=== PATIENT | female | born 1995 | race Caucasian/White ===

== ENCOUNTER → 2018-01-09 14:37 | Outpatient (REF) | payer MEDICAID, SELFPAY | LOC: LAB 14:37 | PROVIDERS: Visit Provider Nurse Practitioner Obstetrics & Gynecology | DX: Z34.90 Encounter for supervision of normal pregnancy, unspecified, unspecified trimester (principal) | CPT/HCPCS: 86403 ==

== ENCOUNTER 2018-01-16 12:08 | Outpatient (CLI) | payer MEDICAID, SELFPAY ==
[2018-01-16 12:31] VITALS: BP 134/92; PULSE 76; RESP 18; TEMP 36.8; O2SAT 99; BMI 46.1
--- NOTE | 2018-01-16 13:01 | P.PN_ITS ---
Internal Medicine - PN: Subj *Date: 01/16/18 *Time: 12:59 Interval history: She is a 23-year-old 3 para 2 who was seen in my office today and her blood pressure is 140/110. She has 3+ proteinuria. She has brisk reflexes. She denies headache, scotomata or epigastric pain. She has had a previous history of increased blood pressure in her previous pregnancies. Her nonstress test is reactive she is not having any contractions. Her cervix is 2-3 cm 50% -2. We will order [facility] blood work. Her blood pressure here is 130/90. Given the fact that her blood pressure settled we will consider sending her home for a 24- hour urine test. We will see her back in my office in a couple of days. If her blood pressure continues to be elevated will consider delivery. Exam Vital signs and Labs for Last 24 Hours: Temp Pulse Resp BP Pulse Ox 98.3 F 76 18 134/92 99 01/16/18 12:31 01/16/18 12:31 01/16/18 12:31 01/16/18 12:31 01/16/18 12:31 I & O for Last 24 hours: Intake & Output 01/14/18 01/15/18 01/16/18 01/17/18 11:59 11:59 11:59 11:59 Weight 236 lb 8 oz - Constitutional no acute distress Assessment and Plan (1) PIH ( induced hypertension), antepartum Current visit: Yes Status: Acute Category: Medical Code(s): O13.9 - Gestational [-induced] hypertension without significant proteinuria, unspecified trimester (2) Prior complicated by PIH, antepartum Current visit: Yes Status: Acute Category: Medical Code(s): O09.899 - Supervision of other high risk pregnancies, unspecified trimester - Assessment and plan all Dx Assessment and Plan for all problems:: We will observe her for the next hour or 2. We will make arrangements for her to have a 24-hour urine. She has some routine blood work ordered. She is however completely asymptomatic. We will see with a 24-hour urine shows and if she continues to have proteinuria we will consider delivery.
[2018-01-16 13:05] LABS: Microscopic, Urine URINE MICROSCOPIC (MICROSCOPIC)
[2018-01-16 13:23] LABS: Hematocrit 32.2 % (37.0-47.0); Hemoglobin 10.8 g/dL (12.2-16.2); Mean Corpuscular HGB Conc 33.5 g/dL (31.8-35.4); Mean Corpuscular Hemoglobin 27.3 pg (27.0-31.2); Mean Corpuscular Volume 81.5 fl (81-99); Mean Platelet Volume 8.3 fl (7.4-10.4); Monocytes % 3.8 % (1.7-9.3); Platelet Count 248 K/mm3 (142-424); Red Blood Count 3.95 M/mm3 (4.20-5.40); Red Cell Distribution Width 15.5 % (11.5-17.5); White Blood Count 7.2 K/mm3 (4.8-10.8)
[2018-01-16 13:23] LABS: Appearance,Urine SL CLOUDY (Clear); Bilirubin,Urine Negative (Negative); Blood, Urine 2+ (Negative); Color,Urine YELLOW (Yellow); Glucose,Urine (UA) Negative (Negative); Ketones,Urine TRACE (Negative); Leukocyte Esterase,Urine Negative (Negative); Nitrate,Urine Negative (Negative); Protein,Urine 3+ (Negative); Specific Gravity, Urine >= 1.030 (1.005-1.030); Urobilinogen,Urine 0.2 EU/dl (0.2)
[2018-01-16 13:31] LABS: Basophils % 0.4 % (0.1-2.0); Eosinophils # 0.1 K/mm3 (0.0-0.4); Eosinophils % 1.1 % (0.1-12.0); Monocytes # 0.3 K/mm3 (0.1-1.0); Neutrophils # 4.9 K/mm3 (1.8-7.8)
[2018-01-16 13:32] LABS: Lymphocytes # 1.9 K/mm3 (0.7-4.5); Lymphocytes % 26.6 K/mm3 (10-50)
[2018-01-16 13:46] LABS: Bacteria,Urine 4+ /lpf
[2018-01-16 13:46] LABS: Alanine Aminotransferase 21 U/L (12-78); Anion Gap 11.2 mEq/L (5-15); Aspartate Amino Transferase 19 U/L (15-37); Blood Urea Nitrogen 11 mg/dL (7-18); Carbon Dioxide 25 mmol/L (21.0-32.0); Chloride 106 mmol/L (98-107); Creatinine Clearance Estimated 92 mL/min (0-300); Creatinine,Serum 0.68 mg/dL (0.55-1.02); Estimated Glomerular Filt Rate 107 ml/min (>60); GFR (African American) 130 ML/MIN (>60); Glucose 111 mg/dL (74-106); Potassium 4.2 mmoL/L (3.5-5.1); Sodium 138 mmol/L (136-145); Uric Acid 3.7 mg/dL (2.6-7.2)
[2018-01-16 14:31] LABS: Activated Partial Thrombo Time 23.3 seconds (23.6-34.0); D-Dimer 863 (0-400); Fibrinogen 359 mg/dL (204-500); INR 0.83 (0.9-1.1)
== END 2018-01-16 14:30 | disposition home or self-care (01) ==
LOC: OBOUT 12:10 → OB 12:11
PROVIDERS: PCP Nurse Practitioner Obstetrics & Gynecology; Visit Provider Nurse Practitioner Obstetrics & Gynecology
DX: O13.9 Gestational [pregnancy-induced] hypertension without significant proteinuria, unspecified trimester (principal); O09.899 Supervision of other high risk pregnancies, unspecified trimester; Z3A.38 38 weeks gestation of pregnancy
CPT/HCPCS: 59025; 80048; 81001; 84450; 84460; 84550; 85025; 85378; 85384; 85610; 85730; 87086

== ENCOUNTER → 2018-01-19 14:46 | Outpatient (REF) | payer MEDICAID, SELFPAY ==
[2018-01-19 16:41] LABS: Total Protein 24 Hour,Urine 9204 mg/24 hr (40-90); Total Protein,Urine Random 736.3 mg/dL (0.0-11.9); Total Volume,Urine 1250 mL (600-1600)
== END ==
LOC: LAB 14:46
PROVIDERS: Visit Provider Nurse Practitioner Obstetrics & Gynecology
DX: Y99.9 Unspecified external cause status (principal)
CPT/HCPCS: 84155

== ENCOUNTER 2018-01-20 09:57 | Inpatient (IN) | payer MEDICAID, SELFPAY ==
[2018-01-20] VITALS (29 sets, daily range): BP systolic 118–149; BP diastolic 63–94; PULSE 72–83; RESP 16; TEMP 36.7–36.8; O2SAT 100; BMI 46.8
[2018-01-20 11:12] LABS: Basophils % 0.4 % (0.1-2.0); Eosinophils # 0.1 K/mm3 (0.0-0.4); Eosinophils % 1.7 % (0.1-12.0); Hematocrit 31.6 % (37.0-47.0); Hemoglobin 10.4 g/dL (12.2-16.2); Lymphocytes # 1.8 K/mm3 (0.7-4.5); Lymphocytes % 24.2 K/mm3 (10-50); Mean Corpuscular Hemoglobin 26.6 pg (27.0-31.2); Mean Corpuscular Volume 80.6 fl (81-99); Mean Platelet Volume 8.2 fl (7.4-10.4); Monocytes # 0.4 K/mm3 (0.1-1.0); Monocytes % 4.7 % (1.7-9.3); Neutrophils # 5.2 K/mm3 (1.8-7.8); Platelet Count 242 K/mm3 (142-424); Red Blood Count 3.92 M/mm3 (4.20-5.40); Red Cell Distribution Width 15.6 % (11.5-17.5); White Blood Count 7.6 K/mm3 (4.8-10.8)
[2018-01-20 11:28] LABS: Alanine Aminotransferase 22 U/L (12-78); Anion Gap 10.3 mEq/L (5-15); Blood Urea Nitrogen 14 mg/dL (7-18); Carbon Dioxide 25 mmol/L (21.0-32.0); Chloride 104 mmol/L (98-107); Creatinine Clearance Estimated 86 mL/min (0-300); Creatinine,Serum 0.73 mg/dL (0.55-1.02); Estimated Glomerular Filt Rate 99 ml/min (>60); GFR (African American) 120 ML/MIN (>60); Glucose 84 mg/dL (74-106); Sodium 135 mmol/L (136-145); Uric Acid 4.6 mg/dL (2.6-7.2)
[2018-01-20 11:29] LABS: Aspartate Amino Transferase 26 U/L (15-37); Potassium 4.3 mmoL/L (3.5-5.1)
[2018-01-20 11:35] LABS: D-Dimer 985 (0-400)
[2018-01-20 12:46] LABS: Activated Partial Thrombo Time 23.3 seconds (23.6-34.0); Fibrinogen 359 mg/dL (204-500); INR 0.85 (0.9-1.1); Prothrombin Time 9.2 seconds (9.4-11.8)
[2018-01-20 13:49] LABS: Appearance,Urine CLOUDY (Clear); Bilirubin,Urine Negative (Negative); Blood, Urine 1+ (Negative); Color,Urine YELLOW (Yellow); Glucose,Urine (UA) Negative (Negative); Ketones,Urine Negative (Negative); Leukocyte Esterase,Urine Negative (Negative); Microscopic, Urine URINE MICROSCOPIC (MICROSCOPIC); Nitrate,Urine Negative (Negative); Protein,Urine 3+ (Negative); Specific Gravity, Urine 1.025 (1.005-1.030); Urobilinogen,Urine 0.2 EU/dl (0.2)
[2018-01-20 14:12] LABS: Bacteria,Urine 1+ /lpf; Mucus,Urine Trace /lpf; RBC,Urine Occasional #/hpf (0-3)
--- NOTE | 2018-01-20 15:38 | P.HP_ITS ---
OB - H&P: HPI Antepartum - History of Present Illness Chief complaint: Increased blood pressure - History of Present Criteria for establishing EDC:: LMP confirmed by 1st trimester US Obstetrical complications: preeclampsia Medical complications: none [facility] History Medical History: Denies:: Cancer, Diabetes Mellitus Type 1, Diabetes Mellitus Type 2, MRSA Other Medical History: Reports: Sinus Problems Other Surgeries: Yes: No Previous Surgery Amputation: No Fractures: No - *Social History Educational Level: Completed High School Smoking Status: Never smoker Alcohol Intake: never Substance Use Type: denies use Occupational Status: unemployed Housing: house Household Members: significant other - Psychiatric History Expresses thoughts of harming self/others: None Suicide Plan Description: No Plan *Family Hx:: Diabetes, Asthma Para: 2 Review of Systems - Review of Systems Review of systems:: pertinent systems reviewed and negative unless documented below Meds Home Medications Medication Instructions Recorded Confirmed Type ferrous sulfate 325 mg (65 mg 325 mg PO DAILY tab 01/09/18 01/20/18 History iron) tablet 1 tab PO QHS 01/09/18 01/20/18 History vitamin,calcium,wiscgsyg-nata-plpmg acid tablet Allergies Allergy/AdvReac Type Severity Reaction Status Date / Time Penicillins Allergy Severe DIFF Verified 01/20/18 09:29 BREATHING OB - H&P: Exam - Physical Exam Vital signs: Temp Pulse Resp BP Pulse Ox 98.2 F 80 16 118/65 100 01/20/18 10:27 01/20/18 10:27 01/20/18 10:27 01/20/18 13:58 01/20/18 10:27 - Constitutional no acute distress - Routine Neurological Exam Present: normal reflexes OB - Results - Labs Labs: Short CBC 01/20/18 Range/Units 10:55 WBC 7.6 (4.8-10.8) K/mm3 Hgb 10.4 L (12.2-16.2) g/dL Hct 31.6 L (37.0-47.0) % Plt Count 242 (142-424) K/mm3 BMP 01/20/18 10:55 Sodium 135 L Potassium 4.3 Chloride 104 Carbon Dioxide 25 BUN 14 Creatinine 0.73 Glucose 84 Liver Function 01/20/18 Range/Units 10:55 AST 26 (15-37) U/L ALT 22 (12-78) U/L Urine 02/19/18 Range/Units 13:30 Urine Color Yellow (Yellow) Urine Appearance Cloudy (Clear) Urine pH 6.0 (5.0-8.5) Ur Specific [place] 1.025 (1.005-1.030) Urine Protein 3+ (Negative) Urine Glucose (UA) Negative (Negative) OB - A/P Antepartum (1) PIH ( induced hypertension) Current visit: Yes Status: Acute (2) Prior complicated by PIH, antepartum Current visit: Yes Status: Acute - Additional Plan Plan: induction (She is term with increased blood pressure and proteinuria. We will go ahead and start oxytocin in the morning.) Planning to breastfeed?: Yes
[2018-01-21] VITALS (8 sets, daily range): BP systolic 121–158; BP diastolic 66–95; PULSE 59–74; RESP 16; TEMP 36.6; O2SAT 100
--- NOTE | 2018-01-21 07:55 | HMH.LABNOT ---
Labor Note - Subjective: Date: 01/21/18 Time: 07:55 regular contraction - Objective: NST:: Reactive Contractions:: every 4-5 minutes Cervical Dilation:: 3 Effacement:: 75% Station: -2 Membranes: articially ruptured - Fetus: Monitoring?: Yes monitoring type:: Internal and External - Assessment: Labor progressing?: Yes Cephalopelvic disproportion?: No Patient Problems: All Active Problems PIH ( induced hypertension) (Acute) Prior complicated by PIH, antepartum (Acute) (Acute) (Acute) - Plan: Anesthesia for epidural?: No Continue to labor down?: Yes Plan for ?: No Continue to monitor?: Yes Start pushing?: No
--- NOTE | 2018-01-21 09:39 | P.PN_ITS ---
[facility] Anesthesia Checklist - Patient Identification Patient Identification: Arm Band - Structural Data Admitted From: Inpatient Planned Operative Procedure/s: labor epidural Consent for Planned Operative Procedure(s) Verified: Yes Verified Documents: History and Physical - NPO Status Verified Time NPO: 00:00 - Additional verifications Anesthesia Reactions: No - Airway Assessment C-Spine Mobility Assessed: Yes TMJ Mobility Assessed: Yes Dentition: Good Dentition - Neurological Assessment Level of Consciousness: Awake, Alert - Anesthesia Plan Anesthesia Risk discussed: Yes Anesthesia Plan: Verified ASA Class: II Anesthesia Type: Epidural [facility] Anesthesia HX I have reviewed the patient's past medical history: Yes Medical History: Denies:: Cancer, Diabetes Mellitus Type 1, Diabetes Mellitus Type 2, MRSA Other Medical History: Reports: Sinus Problems Other Surgeries: Yes: No Previous Surgery Amputation: No Fractures: No *Family Hx:: Diabetes, Asthma
--- NOTE | 2018-01-21 10:16 | HMH.DN ---
- Delivery Note Delivery Date:: 01/21/18 Delivery Time:: 10:04 Anesthesia Type: Epidural Was labor medically induced?: Yes Induction method: per pitocin protocol Gestational age (weeks): 39 Infant delivered prior to 39 weeks?: No Infant Gender: Male at 1 minute: 8 at 5 minutes: 9 AF:: Clear fluid LAC or MLE?: LAC Delivery Procedure:: She is a 23-year-old 3 para 2 who was 39+ weeks gestational age. She was office yesterday her blood pressure is in the 140/110 range. She had a 24-hour urine last week that showed almost 800 mg of protein in her 24-hour urine. As result of that we elected to deliver her. She was started on IV oxytocin and had her membranes ruptured. Under labor O she progressed to full vision and deliver continuously born about at 10:05 AM on the morning of 2017. On deliver the head it was noted that there was a tight nuchal cord and I elected to deliver the risks of the 's body atraumatically. The cord was then reduced. The nasopharynx and oropharynx were bulb suctioned. The baby cried spontaneously. We allowed the cord to continue to pulsate for approximately 5 seconds. Cord was then doubly clamped and cut. The infant was then placed on the mother's abdomen for further care. The nurses assigned Apgars of 8 at 1 minute and 9 at 5 minutes. We then obtained cord blood as well as cord pH. Using gentle traction on the cord and countertraction on the fundus I was able to easily deliver the placenta intact. He had a normal three-vessel cord. She had a small left labial tear that was repaired with interrupted 3-0 Vicryl Rapide suture. She has a positive blood, she is rubella immune and was group A streptococcus. She plans to breast-feed. Her carriage setter Dr. Liz. Estimated blood loss was approximately 400 cc. Laceration:: vaginal Placental Delivery Description: Spontaneous
--- NOTE | 2018-01-21 10:19 | P.PCN_ITS ---
- Delivery Note Delivery Date:: 01/21/18 Delivery Time:: 10:04 Anesthesia Type: Epidural Was labor medically induced?: Yes Induction method: per pitocin protocol Gestational age (weeks): 39 Infant delivered prior to 39 weeks?: No Infant Gender: Male at 1 minute: 8 at 5 minutes: 9 AF:: Clear fluid LAC or MLE?: LAC Delivery Procedure:: She is a 23-year-old 3 para 2 who was 39+ weeks gestational age. She was office yesterday her blood pressure is in the 140/110 range. She had a 24- hour urine last week that showed almost 800 mg of protein in her 24-hour urine. As result of that we elected to deliver her. She was started on IV oxytocin and had her membranes ruptured. Under labor O she progressed to full vision and deliver continuously born about at 10:05 AM on the morning of 2017. On deliver the head it was noted that there was a tight nuchal cord and I elected to deliver the risks of the infant's body atraumatically. The cord was then reduced. The nasopharynx and oropharynx were bulb suctioned. The baby cried spontaneously. We allowed the cord to continue to pulsate for approximately 5 seconds. Cord was then doubly clamped and cut. The infant was then placed on the mother's abdomen for further care. The nurses assigned Apgars of 8 at 1 minute and 9 at 5 minutes. We then obtained cord blood as well as cord pH. Using gentle traction on the cord and countertraction on the fundus I was able to easily deliver the placenta intact. He had a normal three-vessel cord. She had a small left labial tear that was repaired with interrupted 3-0 Vicryl Rapide suture. She has a positive blood, she is rubella immune and was group A streptococcus. She plans to breast-feed. Her emergency department nurse Dr. Liz. Estimated blood loss was approximately 400 cc. Laceration:: vaginal Placental Delivery Description: Spontaneous
[2018-01-22 07:07] LABS: Hematocrit 29.9 % (37.0-47.0); Hemoglobin 9.6 g/dL (12.2-16.2)
[2018-01-22 07:15] LABS: Cord Blood PH 7.23 (7.35-7.45)
--- NOTE | 2018-01-22 08:11 | P.PN_ITS ---
Internal Medicine - PN: Subj *Date: 01/22/18 *Time: 08:10 Interval history: She is doing well. She is eating and drinking and ambulating. She is breast- feeding. Her lochia is normal. Exam Vital signs and Labs for Last 24 Hours: Temp Pulse Resp BP Pulse Ox 97.8 F 67 16 135/78 100 01/21/18 07:05 01/21/18 07:05 01/21/18 07:05 01/21/18 07:05 01/21/18 07:05 Laboratory Results - last 24 hr 01/21/18 10:15: Cord ABG pH 7.23 L* 01/22/18 06:35: Hgb 9.6 L, Hct 29.9 L I & O for Last 24 hours: Intake & Output 01/19/18 01/20/18 01/21/18 01/22/18 11:59 11:59 11:59 11:59 Intake Total 318 / 318 2300 / 2300 Output Total 1100 / 1100 Balance -782 / -782 2300 / 2300 Weight 240 lb - Constitutional no acute distress Assessment and Plan (1) PIH ( induced hypertension) Current visit: Yes Status: Acute Category: Medical Code(s): O13.9 - Gestational [-induced] hypertension without significant proteinuria, unspecified trimester (2) Prior complicated by PIH, antepartum Current visit: Yes Status: Acute Category: Medical Code(s): O09.899 - Supervision of other high risk pregnancies, unspecified trimester - Assessment and plan all Dx Assessment and Plan for all problems:: She continues to do well. Her blood pressures are slightly elevated in the 140/ 90 range. She denies any headache or scotomata.
[2018-01-22 20:25] VITALS: BP 179/112; PULSE 85; RESP 18; TEMP 36.8; O2SAT 98
[2018-01-22 21:20] VITALS: BP 121/78; PULSE 80; RESP 18
--- NOTE | 2018-01-23 08:05 | HMH.DCSUM ---
General - General Admission date: 01/21/18 Objective Vital signs: Temp Pulse Resp BP Pulse Ox 98.3 F 80 18 121/78 98 01/22/18 20:25 01/22/18 21:20 01/22/18 21:20 01/22/18 21:20 01/22/18 20:25 DS: Diagnosis - Discharge Diagnosis (1) PIH ( induced hypertension) Status: Acute (2) Prior complicated by PIH, antepartum Status: Acute Discharge Plan - Patient Discharge Instructions Additional Instructions: NO HEAVY LIFTING OR DRIVING FOR 2 WEEKS OR WHILE TAKING PAIN MEDICATIONS. NOTHING IN VAGINA FOR [address] FOLLOW UP WITH DR GAITAN ON Patient Instructions: [facility] Post Discharge Instructions - Follow up Plan Home Medications: Home Medications Medication Instructions Recorded Confirmed Type ferrous sulfate 325 mg (65 mg 325 mg PO DAILY tab 01/09/18 01/20/18 History iron) tablet 1 tab PO HS 01/09/18 01/21/18 History vitamin,calcium,okzoixos-fphq-mbulx acid tablet Prescriptions/Medication Reconciliation: No Action ferrous sulfate 325 mg (65 mg iron) tablet 325 mg PO DAILY tab vitamin,calcium,gtnthqoe-jbvh-riizd acid tablet 1 tab PO HS
--- NOTE | 2018-01-23 08:14 | P.DS_ITS ---
General - General Admission date: 01/21/18 Objective Vital signs: Temp Pulse Resp BP Pulse Ox 98.3 F 80 18 121/78 98 01/22/18 20:25 01/22/18 21:20 01/22/18 21:20 01/22/18 21:20 01/22/18 20:25 DS: Diagnosis - Discharge Diagnosis (1) PIH ( induced hypertension) Status: Acute (2) Prior complicated by PIH, antepartum Status: Acute Discharge Plan - Patient Discharge Instructions Additional Instructions: NO HEAVY LIFTING OR DRIVING FOR 2 WEEKS OR WHILE TAKING PAIN MEDICATIONS. NOTHING IN VAGINA FOR [address]. FOLLOW UP WITH DR GAITAN ON Patient Instructions: [facility] Post Discharge Instructions - Follow up Plan Home Medications: Home Medications Medication Instructions Recorded Confirmed Type ferrous sulfate 325 mg (65 mg 325 mg PO DAILY tab 01/09/18 01/20/18 History iron) tablet 1 tab PO HS 01/09/18 01/21/18 History vitamin,calcium,ofbdinse-qbwl-buwtt acid tablet Prescriptions/Medication Reconciliation: No Action ferrous sulfate 325 mg (65 mg iron) tablet 325 mg PO DAILY tab vitamin,calcium,ylvtcmfl-hyue-qaqsc acid tablet 1 tab PO HS
--- NOTE | 2018-01-23 08:15 | HMH.DCSUM ---
General - General Admission date: 01/21/18 Discharge date: 01/23/18 HPI HPI: She is a 23-year-old 3 para 2 who was 39+ weeks gestational office and her blood pressure was increased. Is elected to deliver her. Objective Vital signs: Temp Pulse Resp BP Pulse Ox 98.3 F 80 18 121/78 98 01/22/18 20:25 01/22/18 21:20 01/22/18 21:20 01/22/18 21:20 01/22/18 20:25 no acute distress Hospital Course Hospital Course: She was started on IV oxytocin and had her membranes ruptured. Under labor epidural she progressed to full dilation. She delivered spontaneously a liveborn male child at 10:04 AM on the morning of January 21, 2018. The baby weighed 6 lbs. 3 oz. and was 18 inches long. He had Apgars of 8 at 1 minute and 9 at 5 minutes. She has done well and has remained afebrile throughout her hospitalization. She is eating and drinking and ambulating. She is breast-feeding. She has a positive blood, she is rubella immune and was group A streptococcus negative. Her director of strategy & mobile is Dr. Liz. She is discharged home to follow-up with me in approximately 2 weeks time. She will take inrl-cel-cksavkk analgesics. She will take her vitamins and iron. She did have increased blood pressure and on her first day she was started on oral labetalol 200 mg twice daily. She will take this when she goes home. DS: Diagnosis - Discharge Diagnosis (1) PIH ( induced hypertension) Status: Acute (2) Prior complicated by PIH, antepartum Status: Acute Discharge Plan - Patient Discharge Instructions ACTIVITY: Continue current activity, No heavy lifting DIET: continue same diet Additional Instructions: NO HEAVY LIFTING OR DRIVING FOR 2 WEEKS OR WHILE TAKING PAIN MEDICATIONS. NOTHING IN VAGINA FOR [address] FOLLOW UP WITH DR GAITAN ON Patient Instructions: [facility] Post Discharge Instructions - Follow up Plan Disposition: Home, Self-Half-Way Medications: Home Medications Medication Instructions Recorded Confirmed Type ferrous sulfate 325 mg (65 mg 325 mg PO DAILY tab 01/09/18 01/20/18 History iron) tablet 1 tab PO HS 01/09/18 01/21/18 History vitamin,calcium,argegneu-jtap-qodxc acid tablet Prescriptions/Medication Reconciliation: Continue ferrous sulfate 325 mg (65 mg iron) tablet 325 mg PO DAILY tab vitamin,calcium,mpauwtrc-zoql-ypqzz acid tablet 1 tab PO HS
--- NOTE | 2018-01-23 08:18 | P.DS_ITS ---
General - General Admission date: 01/21/18 Discharge date: 01/23/18 HPI HPI: She is a 23-year-old 3 para 2 who was 39+ weeks gestational office and her blood pressure was increased. Is elected to deliver her. Objective Vital signs: Temp Pulse Resp BP Pulse Ox 98.3 F 80 18 121/78 98 01/22/18 20:25 01/22/18 21:20 01/22/18 21:20 01/22/18 21:20 01/22/18 20:25 no acute distress Hospital Course Hospital Course: She was started on IV oxytocin and had her membranes ruptured. Under labor epidural she progressed to full dilation. She delivered spontaneously a liveborn male child at 10:04 AM on the morning of January 21, 2018. The baby weighed 6 lbs. 3 oz. and was 18 inches long. He had Apgars of 8 at 1 minute and 9 at 5 minutes. She has done well and has remained afebrile throughout her hospitalization. She is eating and drinking and ambulating. She is breast- feeding. She has a positive blood, she is rubella immune and was group A streptococcus negative. Her director of cardiac cath lab is Dr. Liz. She is discharged home to follow-up with me in approximately 2 weeks time. She will take ensh-ncx-xtftxid analgesics. She will take her vitamins and iron. She did have increased blood pressure and on her first day she was started on oral labetalol 200 mg twice daily. She will take this when she goes home. DS: Diagnosis - Discharge Diagnosis (1) PIH ( induced hypertension) Status: Acute (2) Prior complicated by PIH, antepartum Status: Acute Discharge Plan - Patient Discharge Instructions ACTIVITY: Continue current activity, No heavy lifting DIET: continue same diet Additional Instructions: NO HEAVY LIFTING OR DRIVING FOR 2 WEEKS OR WHILE TAKING PAIN MEDICATIONS. NOTHING IN VAGINA FOR [address]. FOLLOW UP WITH DR GAITAN ON Patient Instructions: [facility] Post Discharge Instructions - Follow up Plan Disposition: Home, Self-[facility] Medications: Home Medications Medication Instructions Recorded Confirmed Type ferrous sulfate 325 mg (65 mg 325 mg PO DAILY tab 01/09/18 01/20/18 History iron) tablet 1 tab PO HS 01/09/18 01/21/18 History vitamin,calcium,hhqvkupg-yjiq-vvryh acid tablet Prescriptions/Medication Reconciliation: Continue ferrous sulfate 325 mg (65 mg iron) tablet 325 mg PO DAILY tab vitamin,calcium,pusqwuzm-ypvm-qvxar acid tablet 1 tab PO HS
[2018-01-23 12:10] LABS: Basophils % 0.4 % (0.1-2.0); Eosinophils # 0.1 K/mm3 (0.0-0.4); Eosinophils % 1.2 % (0.1-12.0); Hematocrit 29.7 % (37.0-47.0); Hemoglobin 9.7 g/dL (12.2-16.2); Lymphocytes # 1.8 K/mm3 (0.7-4.5); Lymphocytes % 21.4 K/mm3 (10-50); Mean Corpuscular HGB Conc 32.8 g/dL (31.8-35.4); Mean Corpuscular Volume 82.2 fl (81-99); Mean Platelet Volume 8.1 fl (7.4-10.4); Monocytes # 0.3 K/mm3 (0.1-1.0); Monocytes % 3.7 % (1.7-9.3); Neutrophils # 6.2 K/mm3 (1.8-7.8); Neutrophils % 73.4 % (37.0-80.0); Platelet Count 236 K/mm3 (142-424); Red Blood Count 3.61 M/mm3 (4.20-5.40); Red Cell Distribution Width 15.9 % (11.5-17.5); White Blood Count 8.4 K/mm3 (4.8-10.8)
[2018-01-23 12:23] LABS: Alanine Aminotransferase 25 U/L (12-78); Anion Gap 9.1 mEq/L (5-15); Aspartate Amino Transferase 21 U/L (15-37); Blood Urea Nitrogen 8 mg/dL (7-18); Carbon Dioxide 30 mmol/L (21.0-32.0); Chloride 105 mmol/L (98-107); Creatinine Clearance Estimated 89 mL/min (0-300); Creatinine,Serum 0.71 mg/dL (0.55-1.02); Estimated Glomerular Filt Rate 102 ml/min (>60); GFR (African American) 123 ML/MIN (>60); Glucose 88 mg/dL (74-106); Potassium 4.1 mmoL/L (3.5-5.1); Sodium 140 mmol/L (136-145); Uric Acid 4.7 mg/dL (2.6-7.2)
[2018-01-23 13:07] LABS: Microscopic, Urine URINE MICROSCOPIC (MICROSCOPIC); Protein,Urine 2+ (Negative)
[2018-01-23 13:15] LABS: D-Dimer 1250 (0-400)
[2018-01-23 14:13] LABS: Activated Partial Thrombo Time 21.9 seconds (23.6-34.0); Fibrinogen 461 mg/dL (204-500); INR 0.85 (0.9-1.1); Prothrombin Time 9.2 seconds (9.4-11.8)
== END 2018-01-23 14:10 | disposition home or self-care (01) | DRG 775 ==
PROVIDERS: Admitting Provider Nurse Practitioner Obstetrics & Gynecology; Visit Provider Nurse Practitioner Obstetrics & Gynecology
DX: O13.4 Gestational [pregnancy-induced] hypertension without significant proteinuria, complicating childbirth (principal); O69.81X0 Labor and delivery complicated by cord around neck, without compression, not applicable or unspecified; Z37.0 Single live birth; Z3A.39 39 weeks gestation of pregnancy; O70.0 First degree perineal laceration during delivery
CPT/HCPCS: 59409; 59025; 80048; 81001; 82800; 84155; 84450; 84460; 84550; 85014; 85018; 85025; 85378; 85384; 85610; 85730; 86850; C1758

== ENCOUNTER 2022-08-10 20:40 | Emergency (ER) | payer MEDICAID, SELFPAY ==
[2022-08-10 21:05] VITALS: BP 134/92; PULSE 97; RESP 16; TEMP 36.8; O2SAT 98; BMI 38.7
[2022-08-10 21:12] LABS: Coronavirus 19, PCR Not Detected (NotDetected); Influenza A, PCR Not Detected (NotDetected); Influenza B, PCR Not Detected (NotDetected); Microscopic, Urine URINE MICROSCOPIC (MICROSCOPIC)
[2022-08-10 21:14] LABS: Appearance,Urine CLEAR (Clear); Bilirubin,Urine Negative (Negative); Blood, Urine Negative (Negative); Color,Urine YELLOW (Yellow); Glucose,Urine (UA) Negative (Negative); Ketones,Urine Negative (Negative); Leukocyte Esterase,Urine 3+ (Negative); Nitrate,Urine Negative (Negative); Protein,Urine Negative (Negative); Urobilinogen,Urine 0.2 EU/dl (0.2)
[2022-08-10 21:19] LABS: Urine Pregnancy, HCG Qual. Negative (Negative)
[2022-08-10 21:25] LABS: Bacteria,Urine 2+ /lpf
--- NOTE | 2022-08-10 22:00 | CT_ITS ---
PROCEDURE INFORMATION: Exam: CT Abdomen And Pelvis With Contrast Exam date and time: 08/10/2022 10:18 PM Age: 27 years old Clinical indication: Abdominal pain; Generalized; Prior surgery; Surgery date: 6+ months; Surgery type: Tubal ligation 2018; Additional info: N/v, low abd pain TECHNIQUE: Imaging protocol: Computed tomography of the abdomen and pelvis with contrast. Radiation optimization: All CT scans at this facility use at least one of these dose optimization techniques: automated exposure control; mA and/or kV adjustment per patient size (includes targeted exams where dose is matched to clinical indication); or iterative reconstruction. Contrast material: ISOVUE; Contrast volume: 75 ml; Contrast route: IV; COMPARISON: TVP US TRANSVAGINAL PREG 09/11/2017 1:34 PM FINDINGS: Lungs: Visualized lung bases are clear. Heart: Heart size normal. Mediastinal space: The visualized distal esophagus is largely contracted without gross abnormality. Liver: Normal contour. There are few very small 3-4 mm low-density nonenhancing probable cysts in the liver which do not require further assessment. No intrahepatic biliary ductal dilatation. Gallbladder and bile ducts: Normal. No calcified stones. No ductal dilation. Pancreas: Normal. No inflammatory changes or ductal dilation. Spleen: Normal. No splenomegaly. Adrenal glands: Normal. No adrenal mass. Kidneys and ureters: No acute abnormalities. No hydronephrosis or hydroureter. No urinary tract stones are identified. Stomach and bowel: The stomach is largely contracted without gross abnormality. The small bowel is nondilated with no gross abnormality. Question mild colonic wall thickening in the ascending colon suspicious for mild colitis. No evidence of perforation or abscess. Appendix: The appendix is normal in caliber and demonstrates no evidence of appendicitis. Intraperitoneal space: No free fluid or air. Vasculature: No acute process. No abdominal aortic aneurysm. Lymph nodes: No adenopathy. Urinary bladder: Unremarkable as visualized. Reproductive: Unremarkable as visualized. Bones/joints: No acute osseous abnormalities. Soft tissues: Unremarkable. IMPRESSION: 1. Questionable mild colonic wall thickening in the ascending colon suspicious for mild colitis. No evidence of perforation or abscess. 2. Additional nonemergent findings detailed above.
--- NOTE | 2022-08-10 22:03 | HMH.EDABDPAI ---
Discharge Plan Disposition Patient Disposition: Home, Self-Care Prescriptions Prescriptions: New levofloxacin 500 mg tablet 500 mg PO DAILY Qty: 7 0RF Referrals Follow up/Referrals: Sadi Dunham [Primary Care Provider] - See instructions Clinical Impressions Clinical Impression: UTI (urinary tract infection) Instructions Patient Instructions: DI for Urinary Tract Infection (UTI) Discharge ED Provider: Rg Cruz Abdominal Pain HPI General Chief Complaint: Abdominal Pain Stated Complaint: Cramping,vomiting Time Seen by Provider: 08/10/22 22:03 Mode of Arrival: Family Vehicle Source of Information: Patient and Medical Record Limitations: No Limitations Description of Symptoms (Recalled from ER Triage Doc. by RN): Pt c/o bilat pelvic cramping & pain, n/v, 1 positive test, and discharge from nipples. She states she had a tubal ligation in 2017, but she has not had a period sincy June 22. States that 2 days ago her R nipple had a white discharge and Left nipple had a darker almost ylw appearance. Denies any fever, chills, or diarrhea. Pt said she took 3 tests and 1 was positive while 2 were negative. She does note tenderness wit palpation to bilat breasts but has not felt any nodules, redness, or open skin lesions. History of Present Illness HPI narrative: has concern for possible preg despite btl- has lower pelvic pain but no d/c but has bilat breast d/c MD complaint: other (suprapubic ) Onset (ago): day(s) Location: suprapubic Severity: moderate Associated symptoms: other (breast d/c) Related Data Previous Rx's Medication Instructions Recorded levofloxacin 500 mg tablet 500 mg PO DAILY #7 tabs 08/10/22 Allergies Allergy/AdvReac Type Severity Reaction Status Date / Time Penicillins Allergy Severe DIFF Verified 04/26/22 11:59 BREATHING PFSH PFSH Social History Smoking Status: Never smoker second hand exposure: No alcohol intake: never substance use type: denies use current occupational status: unemployed Travel in the last 8 weeks: None household members: significant other housing: house caffeine: No ROS Obtained: Yes All systems reviewed & no additional complaints except as documented Physical Exam General General appearance: alert and obese Head Head exam: normocephalic Eye Eye exam: Present PERRL and EOMI ENT ENT exam: Present mucous membranes moist Neck Neck exam: Present trachea midline Respiratory Respiratory exam: Absent respiratory distress Cardiovascular Cardiovascular exam: Present regular rate; Absent systolic murmur Abdominal Exam Abdominal exam: Present soft; Absent rebound Extremities Exam Extremities exam: Present full ROM Neurological Exam Neurological exam: Present alert, oriented X3 and CN II-XII intact Psychiatric Psychiatric exam: Present normal affect Skin Skin exam: Present intact Medical Decision Making Medical Records Medical records reviewed: Yes I reviewed the patient's medical records. Vitor Inquiry Pt receiving controlled substance: No Vital Signs: 08/10/22 21:05 Temperature 98.2 F Temperature Source Oral Pulse Rate [Right] 97 H Respiratory Rate 16 Blood Pressure [Right Arm] 134/92 H Blood Pressure Mean [Right Arm] 106 Blood Pressure Source [Right Arm] Automatic Cuff 02 Sat by Pulse Oximetry 98 Oxygen Delivery Method Room Air Lab Data Lab results reviewed: Yes I reviewed the patient's lab results. Lab Results 08/10/22 21:04: Urine Color Yellow, Urine Appearance Clear, Urine pH 6.0, Ur Specific [place] 1.010, Urine Protein Negative, Urine Glucose (UA) Negative, Urine Ketones Negative, Urine Blood Negative, Urine Nitrate Negative, Urine Bilirubin Negative, Urine Urobilinogen 0.2, Ur Leukocyte Esterase 3+ A, Urine RBC None, Urine WBC 5-10, Ur Squamous Epith Cells 3-5, Urine Bacteria 2+ 08/10/22 21:04: Urine HCG, Qual Negative 08/10/22 21:04: SARS-CoV-2 (PCR) Not detected, Influenza
[2022-08-10 22:19] LABS: Basophils # 0.1 K/mm3 (0-0.2); Basophils % 0.8 % (0.1-2.0); Eosinophils # 0.1 K/mm3 (0.0-0.4); Eosinophils % 1.1 % (0.1-12.0); Hematocrit 39.5 % (37.0-47.0); Hemoglobin 13.2 g/dL (12.2-16.2); Lymphocytes # 1.9 K/mm3 (0.7-4.5); Lymphocytes % 24.5 % (10-50); Mean Corpuscular HGB Conc 33.4 g/dL (31.8-35.4); Mean Corpuscular Hemoglobin 29.3 pg (27.0-31.2); Mean Corpuscular Volume 87.6 fl (81-99); Mean Platelet Volume 7.5 fl (7.4-10.4); Monocytes # 0.4 K/mm3 (0.1-1.0); Monocytes % 4.5 % (1.7-9.3); Neutrophils # 5.3 K/mm3 (1.8-7.8); Neutrophils % 69.1 % (37.0-80.0); Platelet Count 325 K/mm3 (142-424); Red Blood Count 4.51 M/mm3 (4.20-5.40); Red Cell Distribution Width 13.7 % (11.5-17.5); White Blood Count 7.7 K/mm3 (4.8-10.8)
[2022-08-10 22:24] LABS: Amylase 59 U/L (30-110)
[2022-08-10 22:25] LABS: Alanine Aminotransferase 19 U/L (12-78); Albumin Level 4.3 g/dl (3.5-5.0); Albumin/Globulin Ratio 1.3 (1.1-1.8); Alkaline Phosphatase 69 U/L (38-126); Anion Gap 10.8 mEq/L (5-15); Aspartate Amino Transferase 28 U/L (14-36); Blood Urea Nitrogen 9 mg/dl (7-17); Calcium 8.8 mg/dl (8.4-10.2); Carbon Dioxide 27 mmol/L (22.0-30.0); Chloride 106 mmol/L (98-107); Creatinine Clearance Estimated 155 mL/min (50-200); Estimated Glomerular Filt Rate 86 ml/min (>60); GFR (African American) 104 ML/MIN (>60); Globulin 3.3 g/dL (1.3-3.2); Glucose 118 mg/dl (74-100); Lipase 63 U/L (23-300); Potassium 3.8 mmoL/L (3.5-5.1); Sodium 140 mmol/L (136-145); Total Protein,Serum 7.6 g/dl (6.3-8.2)
[2022-08-10 22:29] LABS: C-Reactive Protein 2.1 mg/L (0-4)
[2022-08-10 22:34] LABS: Bilirubin,Total < 0.1 mg/dl (0.2-1.3)
[2022-08-10 22:43] LABS: Erythrocyte Sedimentation Rate 39 mm/hr (0-20)
[2022-08-10 23:33] VITALS: BP 124/80; PULSE 81; RESP 18; TEMP 36.8; O2SAT 99
[2022-08-10 23:37] LABS: Procalcitonin < 0.030 ng/mL (0.0-2.0)
[2022-08-12 08:47] LABS: Prolactin 11.3 ng/mL (4.8-23.3)
== END 2022-08-10 23:36 | disposition home or self-care (01) ==
PROVIDERS: Emergency Provider Emergency Medicine; PCP Family Medicine
DX: N39.0 Urinary tract infection, site not specified (principal); R11.2 Nausea with vomiting, unspecified; Z20.822 Contact with and (suspected) exposure to COVID-19; Z79.899 Other long term (current) drug therapy; Z88.0 Allergy status to penicillin
CPT/HCPCS: 74177; 80053; 81001; 81025; 82150; 83690; 84145; 84146; 85025; 85651; 86140; 87086; 96361; 96374; 96375; 99285; C9803; J0696; J2405; Q9967; U0003; U0005

== ENCOUNTER → 2023-10-21 10:00 | Outpatient (CLI) | payer BC, MEDICAID, SELFPAY ==
--- NOTE | 2023-10-21 10:05 | US_ITS ---
PROCEDURE: US TRANSVAGINAL CLINICAL INDICATION: heavy bleeding COMPARISON: No exams were available for comparison FINDINGS: Transvaginal sonographic images of the pelvis were obtained. UTERUS: 8.8 cm x 4.6 cmx 5.3 cm with a combined endometrial thickness of 14mm. There is a posterior fibroid measuring 1.6 cm x 0.8 cm x 1.3 cm. LEFT OVARY: 3.1 cmx2.5 cm.X1.6cm with a volume of 6.7ml. The ovary appears polycystic. RIGHT OVARY: 3.9 cmx 3.3 cmx2.0 cm with a volume of 13.8ml. Ovary appears polycystic. Both ovaries are seen and appear normal. Doppler flow to both ovaries are seen. There is no fluid in the cul-de-sac. IMPRESSION: 1. Anteverted uterus normal in shape and size. The endometrium is slightly thickened at 14 mm. 2. A posterior fibroid is seen measuring 1.6 cm. 3. Both ovaries are seen and appear polycystic. 4. No fluid in the cul-de-sac. Dictated by: Yair Pereira MD 10/21/2023 10:57 Yair Pereira MD in OV 10/21/2023 10:57
== END ==
PROVIDERS: PCP Family Medicine; Visit Provider Nurse Practitioner Obstetrics & Gynecology
DX: N93.9 Abnormal uterine and vaginal bleeding, unspecified (principal)
CPT/HCPCS: 76830